=== PATIENT | male | born 1975 | race Two or more races ===

== ENCOUNTER → 2017-10-04 | Day surgery (SDC) | payer SELFPAY ==
[~2017-10-04] MED LIST: Acetaminophen/oxyCODONE 325-5 MG Tab PO PRN; Albuterol 6.7 GM Inhaler INH ONE; Dexamethasone 4 MG/ML SDV ONE; Famotidine 20 MG/2 ML SDV IVPUSH ONE; HYDROmorphone 0.5 MG/0.5 ML SYRINGE IVPUSH ONE; HYDROmorphone 0.5 MG/0.5 ML Syringe IVPUSH PRN; Iodine/Sodium Iodide 2% Tincture 30 ML Bottle ONE; Ketorolac 30 MG/ML SDV IVPUSH PRN; Lactated Ringers 1,000 ML IV ONE; Lactated Ringers 1,000 ML ONE; Lidocaine 1% 4 ML ONE; Lidocaine 1% 50 ML MDV ONE; Meperidine PF 50 MG/ML Syringe IVPUSH PRN; Metoclopramide 10 MG/2 ML SDV IVPUSH ONE; Midazolam 1 MG/ML 2 ML SDV ONE; Morphine 15 MG Tab.ER PO SCH; Neostigmine Methylsulfate 1 MG/ML 5 ML Syringe ONE; Ondansetron 4 MG/2 ML SDV IVPUSH PRN; Propofol 200 MG/20 ML SDV ONE; Rocuronium 50 MG/5 ML Vial ONE; Sodium Chloride 0.9% 10 ML Syringe FLUSH PRN; ceFAZolin 2 GM in Premix Bag 1 BAG IV ONE; cefTRIAXone 1 GM in Sodium Chloride 0.9% 100 ML IV ONE; diphenhydrAMINE 50 MG/ML SDV IVPUSH PRN; fentaNYL 100 MCG/2 ML SDV IVPUSH PRN; fentaNYL 250 MCG/5 ML SDV ONE
--- NOTE | 2017-10-04 16:42 | CR ---
Right fourth finger: Three views of the right fourth finger were obtained. Comparison: No previous study. Comminuted and displaced fracture is seen within the distal shaft and tuft of the fourth finger. Soft tissue injury is seen. No proximal bony abnormality is noted. Impression: 1. Distal finger fracture and soft tissue injury. Diagnostic code #3
--- NOTE | 2017-10-04 17:19 | EDM.PDOC ---
ED HPI GENERAL MEDICAL PROBLEM - General Chief Complaint: Laceration Stated Complaint: RIGHT HAND LAC Time Seen by Provider: 10/04/17 15:33 Source of Information: Reports: Patient History Limitations: Reports: Language Barrier - History of Present Illness INITIAL COMMENTS - FREE TEXT/NARRATIVE: 42-year-old [place]-speaking male presents for evaluation and treatment of injury to the right hand third distal finger. Patient is [place]-speaking and there is somewhat of a language barrier present. He has a friend here translating for him. It sounds as if this was a crush type injury, it sounds as if he was at work and a pipe pinched his fourth distal finger. He has an obvious deformity and major laceration to the finger. Tetanus was less than 5 years ago. Last intake was approximately 3 hours ago. Onset: Today Right Hand Pain Score (Numeric/FACES): 5 - Related Data Allergies Allergy/AdvReac Type Severity Reaction Status Date / Time No Known Allergies Allergy Verified 10/04/17 15:13 Home Meds: Home Meds . [No Known Home Meds] 10/04/17 [History] Past Medical History - Past Health History Medical/Surgical History: Denies Medical/Surgical History Social & Family History - Tobacco Use Smoking Status *Q: Current Some Day Smoker Years of Tobacco use: 17 Packs/Tins Daily: 0.5 - Recreational Drug Use Recreational Drug Use: No ED ROS GENERAL - Review of Systems Review Of Systems: ROS reveals no pertinent complaints other than HPI. ED EXAM, SKIN/RASH Exam: See Below Exam Limited By: No Limitations General Appearance: Alert, WD/WN, No Apparent Distress Peripheral Pulses: 2+: Radial (R) Extremities: Other (obvious deformity to the right hand distal 4th finger) Neurological: Alert, Oriented, Normal Cognition Psychiatric: Normal Affect, Normal Mood Skin: Warm, Dry, Normal Color, Wound/Incision (significant laceration to the right hand distal 4th finger; likely bone involvement causing an open fracture; laceration is circumfential to the finger) Location, Skin: Upper Extremity, Right Course - Vital Signs Last Recorded V/S: Last Vital Signs Temp 97.3 F 10/04/17 15:10 Pulse 88 10/04/17 15:10 Resp 16 10/04/17 17:45 BP 134/79 10/04/17 15:10 Pulse Ox 100 10/04/17 17:45 - Orders/Labs/Meds Orders: Active Orders 24 hr Category Date Time Status Patient Status [ADT] Routine ADT 10/04/17 16:42 Active Communication Order [RC] ASDIRECTED Care 10/04/17 16:57 Active Communication Order [RC] ROUTINE Care 10/04/17 17:47 Active Cooling Warming Measures [RC] ASDIRECTED Care 10/04/17 17:47 Active Elevate Extremity [RC] CONTINUOUS Care 10/04/17 16:57 Active Head of Bed Elevation [RC] ASDIRECTED Care 10/04/17 16:58 Active Notify Provider [RC] ASDIRECTED Care 10/04/17 17:47 Active Oxygen Therapy [RC] ASDIRECTED Care 10/04/17 17:47 Active Peripheral IV Care [RC] . DIRECTED Care 10/04/17 15:24 Active Pulse Oximetry [RC] ASDIRECTED Care 10/04/17 17:47 Active Ready for Discharge [RC] PER UNIT ROUTINE Care 10/04/17 17:01 Active Turn, Cough, Deep Breathe [RC] .PRN Care 10/04/17 16:58 Active Vital Signs [RC] PER UNIT ROUTINE Care 10/04/17 16:58 Active Vital Signs [RC] Q15M Care 10/04/17 17:47 Active Fluoro Up To 1Hr [CR] Routine Exams 10/04/17 16:52 Stop Req Acetaminophen/oxyCODONE [Percocet 325-5 MG] Med 10/04/17 16:58 Active 1 - 2 tab PO Q4H PRN HYDROmorphone [Dilaudid] Med 10/04/17 17:47 Ordered 0.5 mg IV ASDIRECTED PRN Ketorolac [Toradol] Med 10/04/17 16:58 Active 30 mg IVPUSH Q6H PRN Meperidine [Demerol] Med 10/04/17 17:47 Ordered 12.5 mg IVPUSH ONETIME PRN Morphine [MS Contin] Med 10/04/17 17:00 Active 15 mg PO ONETIME Ondansetron [Zofran] Med 10/04/17 17:47 Ordered 4 mg IVPUSH ONETIME PRN Ondansetron [Zofran] Med 10/04/17 16:58 Active 4 mg IVPUSH Q4H PRN Sodium Chloride 0.9% [Saline Flush] Med 10/04/17 15:24 Active 10 ml FLUSH ASDIRECTED PRN diphenhydrAMINE [Benadryl] Med 10/04/17 17:47 Ordered 25 mg IVPUSH Q6H PRN fentaNYL [Sublimaze] Med 10/04/17 17:47 Ordered 50 mcg IVPUSH Q5M PRN Ice Therapy [OM.PC] Routine Oth 10/04/17 16:58 Ordered Peripheral IV Insertion Adult [OM.PC] Routine Oth 10/04/17 15:24 Ordered Schedule Procedure [COMM] Stat Ot 10/04/17 16:25 Ordered Medication Orders Diphenhydramine HCl (Benadryl) 25 mg IVPUSH Q6H PRN PRN Reason: Pruritis Fentanyl (Sublimaze) 50 mcg IVPUSH Q5M PRN PRN Reason: Pain Hydromorphone HCl (Dilaudid) 0.5 mg IV ASDIRECTED PRN PRN Reason: Severe Pain Ketorolac Tromethamine (Toradol) 30 mg IVPUSH Q6H PRN PRN Reason: Pain (severe 7-10) Meperidine HCl (Demerol) 12.5 mg IVPUSH ONETIME PRN PRN Reason: Shivering Morphine Sulfate (Ms Contin) 15 mg PO ONETIME JUAN Ondansetron HCl (Zofran) 4 mg IVPUSH Q4H PRN PRN Reason: Nausea/Vomiting Ondansetron HCl (Zofran) 4 mg IVPUSH ONETIME PRN PRN Reason: Nausea/Vomiting Oxycodone/Acetaminophen (Percocet 325-5 Mg) 1 - 2 tab PO Q4H PRN PRN Reason: Pain (severe 7-10) Sodium Chloride (Saline Flush) 10 ml FLUSH ASDIRECTED PRN PRN Reason: Keep Vein Open Last Admin: 10/04/17 15:29 Dose: 10 ml Labs: Laboratory Tests 10/04/17 Range/Units 17:05 Sodium 142 (136-145) mEq/L Potassium 4.2 (3.5-5.1) mEq/L Chloride 107 (98-107) mEq/L Carbon Dioxide 25 (21-32) mEq/L Anion Gap 14.2 (5-15) BUN 22 H (7-18) mg/dL Creatinine 1.0 (0.7-1.3) mg/dL Est Cr Clr Drug Dosing 112.67 mL/min Estimated GFR (MDRD) > 60 (>60) mL/min BUN/Creatinine Ratio 22.0 H (14-18) Glucose 96 (74-106) mg/dL Calcium 8.7 (8.5-10.1) mg/dL Meds: Medications Generic Name Dose Route Start Last Admin Trade Name Frecarter PRN Reason Stop Dose Admin Diphenhydramine HCl 25 mg 10/04/17 17:47 Benadryl IVPUSH Q6H PRN Pruritis Fentanyl 50 mcg 10/04/17 17:47 Sublimaze IVPUSH Q5M PRN Pain Hydromorphone HCl 0.5 mg 10/04/17 17:47 Dilaudid IV ASDIRECTED PRN Severe Pain Ketorolac Tromethamine 30 mg 10/04/17 16:58 Toradol IVPUSH Q6H PRN Pain (severe 7-10) Meperidine HCl 12.5 mg 10/04/17 17:47 Demerol IVPUSH ONETIME PRN Shivering Morphine Sulfate 15 mg 10/04/17 17:00 Ms Contin PO ONETIME JUAN Ondansetron HCl 4 mg 10/04/17 16:58 Zofran IVPUSH Q4H PRN Nausea/Vomiting Ondansetron HCl 4 mg 10/04/17 17:47 Zofran IVPUSH ONETIME PRN Nausea/Vomiting Oxycodone/Acetaminophen 1 - 2 tab 10/04/17 16:58 Percocet 325-5 Mg PO Q4H PRN Pain (severe 7-10) Sodium Chloride 10 ml 10/04/17 15:24 10/04/17 15:29 Saline Flush FLUSH 10 ml ASDIRECTED PRN Administration Keep Vein Open Discontinued Medications Generic Name Dose Route Start Last Admin Trade Name Freq PRN Reason Stop Dose Admin Dexamethasone Confirm 10/04/17 16:55 Dexamethasone Administered 10/04/17 16:56 Dose 4 mg .ROUTE .STK-MED ONE Dexamethasone Confirm 10/04/17 17:29 Dexamethasone Administered 10/04/17 17:30 Dose 4 mg .ROUTE .STK-MED ONE Famotidine 20 mg 10/04/17 16:43 10/04/17 17:01 Pepcid IVPUSH 10/04/17 16:44 20 mg ONETIME ONE Administration Fentanyl Confirm 10/04/17 16:55 Sublimaze Administered 10/04/17 16:56 Dose 250 mcg .ROUTE .STK-MED ONE Hydromorphone HCl 0.5 mg 10/04/17 15:24 10/04/17 15:29 Dilaudid IVPUSH 10/04/17 15:25 0.5 mg ONETIME ONE Administration Cefazolin Sodium/Dextrose 2 gm 50 mls @ 100 mls/hr 10/04/17 16:01 10/04/17 16 :23 / Premix IV 10/04/17 16:30 100 mls/hr ONETIME ONE Administration Lactated Ringer's 1,000 mls @ 999 mls/hr 10/04/17 16:13 10/04/17 16:23 Ringers, Lactated IV 10/04/17 17:13 999 mls/hr .BOLUS ONE Administration Ceftriaxone Sodium 1 gm/ 100 mls @ 200 mls/hr 10/04/17 17:00 Sodium Chloride IV 10/04/17 17:29 ONETIME ONE Lactated Ringer's Confirm 10/04/17 16:55 Ringers, Lactated Administered 10/04/17 16:56 Dose 1,000 mls @ as directed .ROUTE .STK-MED ONE Lidocaine HCl Confirm 10/04/17 16:55 Xylocaine-Mpf 1% Administered 10/04/17 16:56 Dose 4 mls @ as directed .ROUTE .STK-MED ONE Iodine Confirm 10/04/17 16:44 Iodine 2% Mild Tincture Administered 10/04/17 16:45 Dose 30 ml .ROUTE .STK-MED ONE Lidocaine HCl Confirm 10/04/17 16:44 Xylocaine 1% Administered 10/04/17 16:45 Dose 50 ml .ROUTE .STK-MED ONE Metoclopramide HCl 10 mg 10/04/17 16:44 10/04/17 17:01 Reglan IVPUSH 10/04/17 16:45 10 mg ONETIME ONE Administration Midazolam HCl Confirm 10/04/17 16:55 Versed 1 Mg/Ml Administered 10/04/17 16:56 Dose 2 mg .ROUTE .STK-MED ONE Propofol Confirm 10/04/17 16:56 Diprivan 20 Ml Administered 10/04/17 16:57 Dose 200 mg .ROUTE .STK-MED ONE Propofol Confirm 10/04/17 16:56 Diprivan 20 Ml Administered 10/04/17 16:57 Dose 200 mg .ROUTE .STK-MED ONE Rocuronium [place] Confirm 10/04/17 16:55 Zemuron Administered 10/04/17 16:56 Dose 50 mg .ROUTE .STK-MED ONE - Radiology Interpretation Free Text/Narrative:: Right fourth finger: Three views of the right fourth finger were obtained. Comparison: No previous study. Comminuted and displaced fracture is seen within the distal shaft and tuft of the fourth finger. Soft tissue injury is seen. No proximal bony abnormality is noted. Impression: 1. Distal finger fracture and soft tissue injury. - Re-Assessments/Exams Free Text/Narrative Re-Assessment/Exam: 10/04/17 16:05 X-rays showed a comminuted displaced fracture of the left hand fourth finger distal phalanx. I contacted Dr. Arguello, orthopedics international accountant. He will come to the ER plan taken to the OR. We will start 2 g Ancef IV in the meantime. I informed the patient of my conversation with Dr. Arguello. Reports that he has not had anything to eat or drink in the last 3 hours. He is reporting good pain relief with the IV Dilaudid at this time. Departure - Departure Time of Disposition: 16:30 Disposition: DC/Tfer to [facility] Condition: Fair Clinical Impression: Fracture of bone, Laceration - Discharge Information - My Orders Last 24 Hours: My Active Orders 10/04/17 15:24 Peripheral IV Care [RC] . DIRECTED Sodium Chloride 0.9% [Saline Flush] 10 ml FLUSH ASDIRECTED PRN Peripheral IV Insertion Adult [OM.PC] Routine - Assessment/Plan Last 24 Hours: My Active Orders 10/04/17 15:24 Peripheral IV Care [RC] . DIRECTED Sodium Chloride 0.9% [Saline Flush] 10 ml FLUSH ASDIRECTED PRN Peripheral IV Insertion Adult [OM.PC] Routine
--- NOTE | 2017-10-04 17:45 | PCM.PREANE ---
Preanesthetic Assessment - Procedure Proposed Procedure: Finger Repair right 4th vs Amputation - Anesthesia/Transfusion/Family Hx Anesthesia History: No Prior Anesthesia Family History of Anesthesia Reaction: No - Review of Systems General: No Symptoms Pulmonary: Other (Smoker 1-1.5 ppd.) Cardiovascular: No Symptoms Gastrointestinal: No Symptoms Neurological: No Symptoms Other: Reports: None - Physical Assessment NPO Status Date: 10/04/17 NPO Status Time: 16:00 (Dr. Clifford ) O2 Sat by Pulse Oximetry: 100 Respiratory Rate: 16 Vital Signs: Last Vital Signs Temp 36.3 C 10/04/17 15:10 Pulse 88 10/04/17 15:10 Resp 16 10/04/17 15:10 BP 134/79 10/04/17 15:10 Pulse Ox 100 10/04/17 15:10 Height: 1.91 m Weight: 86.183 kg ASA Class: 2E Mental Status: Alert & Oriented x3 Airway Class: Mallampati = 1 Dentition: Reports: Missing Tooth/Teeth Thyro-Mental Finger Breadths: 3 Mouth Opening Finger Breadths: 3 ROM/Head Extension: Full Lungs: Clear to Auscultation, Normal Respiratory Effort Cardiovascular: Regular Rate, Regular Rhythm - Allergies Allergies/Adverse Reactions: Allergies Allergy/AdvReac Type Severity Reaction Status Date / Time No Known Allergies Allergy Verified 10/04/17 15:13 - Acknowledgements Anesthesia Type Planned: General Anesthesia Pt an Appropriate Candidate for the Planned Anesthesia: Yes Alternatives and Risks of Anesthesia Discussed w Pt/Guardian: Yes Pt/Guardian Understands and Agrees with Anesthesia Plan: Yes Additional Comments: Patient does not speak iranian. He is here with his friend and coworker. His friend is translating the information to [employer]. He does understand some iranian. PreAnesthesia Questionnaire - Past Health History Medical/Surgical History: Denies Medical/Surgical History - SUBSTANCE USE Smoking Status *Q: Current Some Day Smoker Recreational Drug Use History: No - HOME MEDS Home Medications: Home Meds . [No Known Home Meds] 10/04/17 [History] - CURRENT (IN HOUSE) MEDS Current Meds: Current Medications Ketorolac Tromethamine (Toradol) 30 mg IVPUSH Q6H PRN PRN Reason: Pain (severe 7-10) Morphine Sulfate (Ms Contin) 15 mg PO ONETIME JUAN Ondansetron HCl (Zofran) 4 mg IVPUSH Q4H PRN PRN Reason: Nausea/Vomiting Oxycodone/Acetaminophen (Percocet 325-5 Mg) 1 - 2 tab PO Q4H PRN PRN Reason: Pain (severe 7-10) Sodium Chloride (Saline Flush) 10 ml FLUSH ASDIRECTED PRN PRN Reason: Keep Vein Open Last Admin: 10/04/17 15:29 Dose: 10 ml Discontinued Medications Dexamethasone (Dexamethasone) Confirm Administered Dose 4 mg .ROUTE .STK-MED ONE Stop: 10/04/17 16:56 Dexamethasone (Dexamethasone) Confirm Administered Dose 4 mg .ROUTE .STK-MED ONE Stop: 10/04/17 17:30 Famotidine (Pepcid) 20 mg IVPUSH ONETIME ONE Stop: 10/04/17 16:44 Last Admin: 10/04/17 17:01 Dose: 20 mg Fentanyl (Sublimaze) Confirm Administered Dose 250 mcg .ROUTE .STK-MED ONE Stop: 10/04/17 16:56 Hydromorphone HCl (Dilaudid) 0.5 mg IVPUSH ONETIME ONE Stop: 10/04/17 15:25 Last Admin: 10/04/17 15:29 Dose: 0.5 mg Cefazolin Sodium/Dextrose 2 gm (/ Premix) 50 mls @ 100 mls/hr IV ONETIME ONE Stop: 10/04/17 16:30 Last Admin: 10/04/17 16:23 Dose: 100 mls/hr Lactated Ringer's (Ringers, Lactated) 1,000 mls @ 999 mls/hr IV .BOLUS ONE Stop: 10/04/17 17:13 Last Admin: 10/04/17 16:23 Dose: 999 mls/hr Ceftriaxone Sodium 1 gm/ (Sodium Chloride) 100 mls @ 200 mls/hr IV ONETIME ONE Stop: 10/04/17 17:29 Lactated Ringer's (Ringers, Lactated) Confirm Administered Dose 1,000 mls @ as directed .ROUTE .STK-MED ONE Stop: 10/04/17 16:56 Lidocaine HCl (Xylocaine-Mpf 1%) Confirm Administered Dose 4 mls @ as directed .ROUTE .STK-MED ONE Stop: 10/04/17 16:56 Iodine (Iodine 2% Mild Tincture) Confirm Administered Dose 30 ml .ROUTE .STK- MED ONE Stop: 10/04/17 16:45 Lidocaine HCl (Xylocaine 1%) Confirm Administered Dose 50 ml .ROUTE .STK-MED ONE Stop: 10/04/17 16:45 Metoclopramide HCl (Reglan) 10 mg IVPUSH ONETIME ONE Stop: 10/04/17 16:45 Last Admin: 10/04/17 17:01 Dose: 10 mg Midazolam HCl (Versed 1 Mg/Ml) Confirm Administered Dose 2 mg .ROUTE .STK-MED ONE Stop: 10/04/17 16:56 Propofol (Diprivan 20 Ml) Confirm Administered Dose 200 mg .ROUTE .STK-MED ONE Stop: 10/04/17 16:57 Propofol (Diprivan 20 Ml) Confirm Administered Dose 200 mg .ROUTE .STK-MED ONE Stop: 10/04/17 16:57 Rocuronium [place] (Zemuron) Confirm Administered Dose 50 mg .ROUTE .STK-MED ONE Stop: 10/04/17 16:56
--- NOTE | 2017-10-04 18:57 | PCM.POSTAN ---
POST ANESTHESIA ASSESSMENT - MENTAL STATUS Mental Status: Alert, Oriented - VITAL SIGNS Pulse Rate: 76 SaO2: 99 Resp Rate: 8 Blood Pressure: 105/54 Temperature: 37.2 C - RESPIRATORY Respiratory Status: Respiratory Rate WNL, Airway Patent, O2 Saturation Stable, Supplemental Oxygen - CARDIOVASCULAR CV Status: Pulse Rate WNL, Blood Pressure Stable - GASTROINTESTINAL GI Status: No Symptoms - PAIN Pain Score: 0 - POST OP HYDRATION Hydration Status: Adequate & Stable
--- NOTE | 2017-10-04 19:14 | PCM48HPAN ---
Post Anesthesia Note - EVALUATION WITHIN 48HRS OF ANESTHETIC Vital Signs in Normal Range: Yes Patient Participated in Evaluation: Yes Respiratory Function Stable: Yes Airway Patent: Yes Cardiovascular Function Stable: Yes Hydration Status Stable: Yes Pain Control Satisfactory: Yes Nausea and Vomiting Control Satisfactory: Yes Mental Status Recovered: Yes
--- NOTE | 2017-10-04 23:47 | HP ---
DATE OF ADMISSION: 10/04/2017 HISTORY OF PRESENT ILLNESS: This is the first orthopedic outpatient admission for surgery for this 42-year- old Georgian male, non-Nepali speaking, to the emergency room for acute injury to his right ring finger. The patient suffered a crushing-type injury to the tip with some pipe causing a severe laceration and soft tissue crush-type accident. The patient notes no other injury at the time of the initial accident. PAST MEDICAL HISTORY: ALLERGIES: No known drug allergies. MEDICAL: He has been a healthy 42-year-old male. CURRENT MEDICATIONS: Currently on no medications. PAST SURGICAL HISTORY: Negative. The patient has had a previous pelvic fracture, but did not require an anesthesia. He cannot remember any anesthesia problems or complications in his family or with himself. The patient has a negative bleeding history and negative blood clot history. SOCIAL HISTORY: The patient is a smoker of 1-1/2 packs per day. He does not drink alcohol. PHYSICAL EXAMINATION: GENERAL: Today reveals a well-developed, well-nourished 42-year-old male, in moderate distress. HEAD, EYES, EARS, NOSE, AND THROAT: Normocephalic. NECK: Supple. CHEST: Clear. COR: Regular rate. ABDOMEN: Soft. GENITOURINARY: Intact. EXTREMITIES: Examination of the right hand reveals a complete laceration to the distal tip of the base of the nail of the right ring finger. There is a partial remaining presence of a small bridge of tissue to the tip that was injured. Otherwise, the circulation was noted to have no capillary refill, the tip was cold, also ecchymosis was seen. RADIOGRAPHIC STUDIES: The x-rays reviewed, which shows a comminuted distal phalanx fracture. OVERALL IMPRESSION: Acute traumatic crush injury with partial amputation and comminuted distal phalanx fracture, right ring finger. PLAN: The patient to undergo surgical irrigation, debridement, repair and/or possible amputation of distal tip right ring finger. Procedure has been outlined to the patient. He understands the procedure and has consented to it. MMODAL /[id number]
--- NOTE | 2017-10-05 09:16 | CONS ---
CONSULTING PHYSICIAN: Niko Argueta MD DATE OF CONSULTATION: 10/04/2017 ORTHOPEDIC EMERGENCY ROOM CONSULTATION REASON FOR CONSULTATION: Orthopedic consultation was called for by Emergency Room physician for evaluation of injury to right hand ring finger. HISTORY OF PRESENT ILLNESS: The patient is a 42-year-old male, who was working today when he caught his hand on a pipe causing a crushing injury to the tip of the ring finger. Significant laceration occurred at the base of the nail causing a flap-type situation for the tip of the finger. The patient was brought into the emergency room, evaluated, and had x-rays taken. There was also significant comminution of the phalanx of the finger. With the evaluation, the patient notes no other injuries other than the tip of the right ring finger. PHYSICAL EXAMINATION: GENERAL: Physical examination in the emergency room reveals a right-handed individual, a 42-year-old male, in moderate distress. EXTREMITIES: Examination of the right ring finger shows a partial amputation of the tip at the base of the nail. There was hematoma formation and some ecchymosis in the distal tip itself. It is cold to touch. Capillary refill is questionable. DIAGNOSTIC IMAGING: The x-rays were reviewed, which shows a comminuted fracture to the distal phalanx of the right ring finger. OVERALL IMPRESSION: Acute crush injury with partial amputation of distal tip in right ring finger. PLAN: For the patient to undergo irrigation, debridement, and repair with possible amputation of the distal tip, right ring finger and any indicated procedure. The procedure was outlined to the patient. He does speak Salvadorean and we did have an proofer. This was outlined to him along with the risks and complications and the postoperative recovery period and phase. He understands and has consented to surgery. MMODAL /[id number]
--- NOTE | 2017-10-05 09:17 | OR ---
DATE OF OPERATION: 10/04/2017 SURGEON: Niko Argueta MD PREOPERATIVE DIAGNOSIS: 1. Crush injury, distal ring finger at nail bed level. 2. Comminuted distal phalanx. POSTOPERATIVE DIAGNOSIS: 1. Crush injury, distal ring finger at nail bed level. 2. Comminuted distal phalanx. ANESTHESIA: General. OPERATION PERFORMED: 1. Irrigation, debridement, evaluation of the right hand ring finger. 2. Repair and complete amputation of distal tip, right ring finger. DESCRIPTION OF PROCEDURE: The patient was taken to the operating room in a supine position, was placed under general anesthesia. After adequate anesthesia, the operation proceeded with evaluation of the tip of the ring finger where the crush injury, and the tip of the finger was amputated approximately 90%. Evaluation of the tip found it to be cold with no capillary refill. It was opted then to complete the amputation when surgery started. Once the decision was made for the circulation on the tip, operation then proceeded with the standard prepping and draping of the right hand and arm by standard technique. After prepping and draping, the operation then proceeded with evaluation of the tip with surge lavage and irrigation being performed to thoroughly irrigate and clean the crush injury site. Once that was completed, the operation proceeded with removal of the major portion of the crushed tip of the finger with bone fragments, and then the operation proceeded with second irrigation and evaluation. The patient had significant loss of the volar aspect of skin. It was opted to go ahead and complete the amputation at the DIP joint, and the operation proceeded with removal of the residual nail bed that was present, and then the amputation was completed. Once that was performed, irrigation again was performed and thoroughly irrigated, and the operation proceeded with evaluation for skin closure. It was found that the skin could be closed with minimal stress and good volar padding. The skin was then closed with 5-0 Prolene. Once that was completed, standard dressings were applied. The patient was then placed in a splint. He tolerated the procedure well and left the operating room in stable condition to his room for recovery. Postoperatively, the patient will be placed on: 1. Keflex 500 mg 1 every 6 hours for 7 days. 2. MS Contin 15 mg 1 every 12 hours for severe pain control for 5 days. 3. Then Percocet 5/325 one every 6 hours for breakthrough pain. The patient was instructed to have followup evaluation in [facility]opedic Clinic in 5 to 7 days for a wound check, wound evaluation, and re-dressings. Also, the patient was instructed that the hand should be elevated and he should quit smoking to help with the circulation. It was explained to the patient the necessity of having the full splint on his hand to improve the circulation to the tip of the finger and also reduce the swelling and also improve the results as far as to decreased infection rate. He understood that at the time prior to the surgery, in the emergency room. We will go ahead stabilize and recover this patient in the recovery room. ESTIMATED BLOOD LOSS: MMODAL /[id number]
== END | disposition home or self-care (01) ==
LOC: JD.ED 15:04 → JD.SDS 16:35
PROVIDERS: ATTEND Specialist
DX: S68.124A Partial traumatic metacarpophalangeal amputation of right ring finger, initial encounter (principal); W23.0XXA Caught, crushed, jammed, or pinched between moving objects, initial encounter; F17.200 Nicotine dependence, unspecified, uncomplicated
CPT/HCPCS: 26236; 36415; 73140; 80048; A9270; J0690; J0696; J1100; J1170; J2001; J2250; J2710; J2765; J3010; J7030; J7050; J7120; 96365; 96375; 99285-25; J2704